=== PATIENT | male | born 1935 | race Two or more races ===

== ENCOUNTER 2017-12-28 02:04 | Emergency (ER) | payer MEDICARE, BC ==
[~2017-12-28] VITALS: Ht 175.3 cm; Wt 80.3 kg
--- NOTE | 2017-12-28 02:07 | NUR ---
PT TO ER BED 12. DAYTON RA 87 FROM [facility] FOR " HIGH BP, UNRESPONSIVE WITH 6-8 RR". PT HAS A HX OF CVA W/R SIDED DEFICITS. 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 VSS/RESP EVEN UNLABORED/NAD NOTED/SKIN WARM AND DRY/AFEBRILE/PT IS NONVERBAL. AWAITING MD KELLY.
--- NOTE | 2017-12-28 02:27 | NUR ---
LAB AT BEDSIDE FOR DRAW.
--- NOTE | 2017-12-28 02:38 | NUR ---
PT TO CT VIA STRETCHER. VSS.
[2017-12-28 02:53] LABS: BASOPHILS # (AUTO) 0.2 /CMM (0.0-0.2); BASOPHILS % (AUTO) 1.8 % (0.0-2.0); EOSINOPHILS % (AUTO) 1.8 % (0.0-6.0); HEMATOCRIT 34 % (39-51); HEMOGLOBIN 11.2 g/dL (13.5-17.5); LYMPHOCYTES # (AUTO) 1.2 /CMM (0.8-4.8); LYMPHOCYTES % (AUTO) 12.4 % (20.0-44.0); MEAN CORPUSCULAR HGB CONC 33 g/dl (31.0-36.0); MEAN CORPUSCULAR VOLUME 87 fL (80-96); MONOCYTES # (AUTO) 0.9 /CMM (0.1-1.30); MONOCYTES % (AUTO) 9.5 % (2.0-12.0); NEUTROPHILS # (AUTO) 7.3 /CMM (1.8-8.9); NEUTROPHILS % (AUTO) 74.5 % (43.0-81.0); PLATELET COUNT (AUTO) 298 /CMM (150-450); RDW COEFFICIENT OF VARIATION 17.6 (11.5-15.0); RED BLOOD CELL COUNT(AUTO) 3.91 MIL/uL (4.5-6.0); WHITE BLOOD COUNT (AUTO) 9.8 K/uL (4.3-11.0)
--- NOTE | 2017-12-28 02:55 | NUR ---
URINE SPECIMEN OBTAINED AND SENT TO THE LAB.
--- NOTE | 2017-12-28 02:59 | NUR ---
EMT AT BEDSIDE FOR EKG.
[2017-12-28 03:08] LABS: CALCIUM, SERUM 8.1 mg/dL (8.5-10.1); CARBON DIOXIDE 31 mmol/L (21-32); CHLORIDE 99 mmol/L (98-107); CREATININE 0.7 mg/dL (0.6-1.3); GLUCOSE 118 mg/dL (74-106); POTASSIUM 3.3 mmol/L (3.5-5.1); SODIUM SERUM 136 mmol/L (136-145); UREA NITROGEN, BLOOD 11 mg/dL (7-18)
[2017-12-28 03:12] LABS: INR 1.22 (0.87-1.13)
[2017-12-28 03:13] LABS: ALANINE AMINOTRANSFERASE 12 U/L (12-78); ALBUMIN 2.1 g/dL (3.4-5.0); ALKALINE PHOSPHATASE 88 U/L (46-116); ASPARTATE AMINOTRANSFERASE 27 U/L (15-37); BILIRUBIN,DIRECT 0.1 mg/dL (0.0-0.2); BILIRUBIN,TOTAL 0.5 mg/dL (0.2-1.0); LIPASE 215 U/L (73-393); TOTAL PROTEIN, SERUM 5.9 g/dL (6.4-8.2)
[2017-12-28 03:14] LABS: TROPONIN I 0.032 ng/mL (0.00-0.056)
--- NOTE | 2017-12-28 03:18 | NUR ---
18G IV X 2 ATTEMPTS TO R AC USING ASEPTIC TECH. IV FLUSHES EASILY WITH NS, NO S/S INFILTRATION NOTED AT THIS TIME.
[2017-12-28 03:20] LABS: APPEARANCE,URINE SL CLOUDY (CLEAR); BILIRUBIN,URINE NEGATIVE (NEGATIVE); BLOOD, URINE TRACE Ery/uL (NEGATIVE); COLOR,URINE YELLOW (YELLOW); KETONES,URINE TRACE (NEGATIVE); LEUKOCYTE ESTERASE ,URINE 3+ (NEGATIVE); NITRITE, URINE POSITIVE (NEGATIVE); PROTEIN,URINE NEGATIVE (NEGATIVE); UGLUCOSE NEGATIVE (NEGATIVE); UROBILINOGEN,URINE 0.2 EU/dL (0.2)
[2017-12-28 03:35] LABS: BACTERIA,URINE Rare /HPF (None Seen); RBC,URINE 0-2 /HPF (0-2); SQUAMOUS EPITHELIAL CELL,UR Few /HPF (None Seen)
[2017-12-28] MEDS ORDERED: CEFTRIAXONE 1GM BAG (ER ONLY) 50 ML IV ONE ×2 (03:40→04:00)
--- NOTE | 2017-12-28 03:48 | NUR ---
MEDICATED PER MD ORDERS.
[2017-12-28] MEDS ORDERED: AZITHROMYCIN 500 MG VIAL ONE (03:49)
[2017-12-28] MEDS ORDERED: AZITHROMYCIN 500 MG in IV D5W 250 ML IV ONE (04:00)
[2017-12-28] MEDS ORDERED: IV NS 0.9% 1,000 ML BAG IV ONE (04:00)
--- NOTE | 2017-12-28 04:02 | NUR ---
SPOKE TO ANTONI ESTEVEZ FROM [facility]. AWARE PT WILL BE RETURNING TO FACILITY. CALLED [facility] FOR TRANSPORT ETA 5:30-6AM TRIP #[id number]
--- NOTE | 2017-12-28 05:12 | NUR ---
PT RESTING COMFORTABLY, VSS. AWAITING AMBULANCE FOR TRANSPORT, PT BEING DC'D HOME.
--- NOTE | 2017-12-28 06:22 | NUR ---
VITAL SIGNS UPDATED.
--- NOTE | 2017-12-28 06:22 | NUR ---
CALLED [facility] [place] FOR UPDATE ON PENDING TRANSFER. ETA CHANGED TO 0700AM
--- NOTE | 2017-12-28 06:58 | NUR ---
REPORT RECIEVED FROM JEAN CLAUDE CORRALES. PT APPEARS TO BE SLEEPING IN BED, EYES ARE CLOSED. AROUSABLE BY VERBAL AND TACTILE STIMULATION. NAD. VSS RR EVEN AND UNLABORED. PENDING DC. WAITING FOR AMBULNZ TRANSPORT.
--- NOTE | 2017-12-28 07:14 | NUR ---
ENDORSED TO ANTONI MERCADO FOR HEATH.
--- NOTE | 2017-12-28 07:21 | NUR ---
Patient is resting comfortably in bed with eyes closed. Easily aroused. VSS
--- NOTE | 2017-12-28 08:08 | NUR ---
IV removed. Catheter intact and site benign. Pressure and 4x4 applied to site. No bleeding noted.Patient discharged to home in stable condition. Written and verbal after care instructions given. Patient verbalizes understanding of instruction.
[2017-12-28 08:10] VITALS: BP 152/91
== END 2017-12-28 08:17 | disposition home or self-care (01) ==
LOC: ER 02:06
DX: N30.00 Acute cystitis without hematuria (principal); R53.1 Weakness; E11.9 Type 2 diabetes mellitus without complications; F03.90 Unspecified dementia, unspecified severity, without behavioral disturbance, psychotic disturbance, mood disturbance, and anxiety; F32.9 Major depressive disorder, single episode, unspecified; G20 Parkinson's disease; I10 Essential (primary) hypertension; I25.10 Atherosclerotic heart disease of native coronary artery without angina pectoris; J45.909 Unspecified asthma, uncomplicated; Z95.1 Presence of aortocoronary bypass graft; Z86.73 Personal history of transient ischemic attack (TIA), and cerebral infarction without residual deficits
CPT/HCPCS: 36415; 70450-TC; 71045-TC; 80048-TC; 80076-TC; 81000-TC; 83605-TC; 83690-TC; 84484-TC; 85025-TC; 85730-TC; 87040-TC; 87086-TC; 87186-TC; A4606; J0456; J0696; J7030; J7040; J7060; Z7610